=== PATIENT | female | born 1980 | race Caucasian/White ===

== ENCOUNTER 2017-06-10 23:14 | Observation (INO) | payer OTHER ==
[~2017-06-10] VITALS: Ht 162.6 cm; Wt 78.9 kg
[2017-06-11 02:11] LABS: HEMOGLOBIN 12.4 gm/dl (12.3-15.3); WHITE BLOOD COUNT 10.9 K/UL (4.5-11.0)
[2017-06-11 02:26] LABS: BUN/CREATININE RATIO 11 (0-10)
[2017-06-11] MEDS ORDERED: SIMVASTATIN20 MG PO (05:39)
[2017-06-11] MEDS ORDERED: METOPROLOL TART25 MG PO (05:40)
[2017-06-12 05:12] LABS: HEMOGLOBIN 10.8 gm/dl (12.3-15.3)
[2017-06-12 05:13] LABS: RED BLOOD COUNT 3.55 M/UL (4.00-5.10); WHITE BLOOD COUNT 6.6 K/UL (4.5-11.0)
[2017-06-12] MEDS ORDERED: NORCO 5-325 TA1 EACH PO (09:50)
[2017-06-12] MEDS ORDERED: CIPRO500 MG PO (09:51)
[2017-06-12] MEDS ORDERED: FLAGYL500 MG PO (09:51)
== END 2017-06-13 01:31 | disposition home or self-care (01) ==
LOC: ER1 23:14 → M/S 06-11 04:28 → ZEROF 06-11 04:28 → M/S 06-11 05:15
PROVIDERS: Family Medicine; ADMIT Surgery
DX: R10.32 Left lower quadrant pain (principal); I10 Essential (primary) hypertension; E78.00 Pure hypercholesterolemia, unspecified; Z87.19 Personal history of other diseases of the digestive system; Z87.891 Personal history of nicotine dependence; Z79.899 Other long term (current) drug therapy; Z98.51 Tubal ligation status
CPT/HCPCS: 36415; 80053; 81001; 82150; 83690; 84703; 85025; 85027; G0378; J1335; J1885; J2270; J2405; J7030; J7050; Q9962

== ENCOUNTER 2020-12-31 06:33 | Emergency (ER) | payer OTHER ==
[~2020-12-31 06:33] MED LIST: CIPRO500 MG PO; FLAGYL500 MG PO; METOPROLOL TART25 MG PO; NORCO 5-325 TA1 EACH PO; SIMVASTATIN20 MG PO
[2020-12-31 08:32] LABS: HEMOGLOBIN 15.6 gm/dl (12.3-15.3); RED BLOOD COUNT 4.81 M/UL (4.00-5.10); WHITE BLOOD COUNT 14.4 K/UL (4.5-11.0)
[2020-12-31 08:56] LABS: BUN/CREATININE RATIO 13 (0-10)
[2020-12-31] MEDS ORDERED: ZOFRAN ODT 4 MG4 MG PO (10:29)
== END 2020-12-31 10:03 | disposition home or self-care (01) ==
LOC: ER1 06:33
PROVIDERS: Student in an Organized Health Care Education/Training Program
DX: K29.70 Gastritis, unspecified, without bleeding (principal); I10 Essential (primary) hypertension; F17.210 Nicotine dependence, cigarettes, uncomplicated; Z79.899 Other long term (current) drug therapy
CPT/HCPCS: 80053; 81001; 82550; 82553; 83690; 83874; 84484; 84703; 85025; 93005; 96374; 99284

== ENCOUNTER 2021-04-24 17:33 | Emergency (ER) | payer OTHER ==
[~2021-04-24 17:33] MED LIST changes: +ZOFRAN ODT 4 MG4 MG PO
[2021-04-24] MEDS ORDERED: MEDROL DOSEPAK 24 MG PO (18:35)
== END 2021-04-24 18:45 | disposition home or self-care (01) ==
LOC: ER1 17:33
DX: S39.012A Strain of muscle, fascia and tendon of lower back, initial encounter (principal); X50.9XXA Other and unspecified overexertion or strenuous movements or postures, initial encounter
CPT/HCPCS: 99283; J1100